=== PATIENT | female | born 1965 | race Caucasian/White ===

== ENCOUNTER 2017-04-15 06:27 | Emergency (ER) | payer SELFPAY ==
[~2017-04-15 06:27] MED LIST: ABILIFY5 M1 PO; MOTRIN800 MG PO; WEL75 PO
[2017-04-15 08:55] VITALS: BP 120/78
== END 2017-04-15 10:15 | disposition home or self-care (01) ==
LOC: ED 06:27
DX: F41.9 Anxiety disorder, unspecified (principal); F17.200 Nicotine dependence, unspecified, uncomplicated; F10.20 Alcohol dependence, uncomplicated; F31.9 Bipolar disorder, unspecified

== ENCOUNTER 2017-04-15 09:11 | Emergency (ER) | payer SELFPAY ==
[2017-04-15 12:24] VITALS: BP 118/64
== END 2017-04-15 12:24 | disposition home or self-care (01) ==
LOC: ED 09:11
DX: M79.1 Myalgia (principal); F10.20 Alcohol dependence, uncomplicated; Z72.0 Tobacco use